=== PATIENT | male | born 1995 | race African-American/Black ===

== ENCOUNTER 2017-11-29 06:26 | Emergency (ER) | payer OTHER ==
[2017-11-29 06:40] VITALS: BP 142/74; PULSE 76; TEMP 98.7; BMI 25.7
--- NOTE | 2017-11-29 07:03 | PDOC ---
History of Present Illness - General Chief Complaint: Wound Stated Complaint: TOE INFECTION Time Seen by Provider: 11/29/17 07:02 History Source: Patient Exam Limitations: No Limitations - History of Present Illness Initial Comments: Pt, with no significant PMH, presents with pain in the 5th toe of the R foot for 4-5 days. He states there was no trauma or injury to the foot, but noticed pain and a blister with bloody drainage at the lateral aspect of the toe. He is presenting today because he noticed the toenail has started to "lift off" and saw clear and bloody discharge on his sock today before presentation. 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 He says the pain is sharp, only occurs when he attempts to bear weight, and does not extend towards the midfoot. He is able to ambulate and bear weight on the foot. He denies fevers/chills, nausea/vomiting, urinary symptoms, diarrhea, or other joint swelling. 11/29/17 08:56 Past History - Travel Traveled outside of the country in the last 30 days: No Close contact w/someone who was outside of country & ill: No - Past Medical History Allergies/Adverse Reactions: Allergies Allergy/AdvReac Type Severity Reaction Status Date / Time No Known Allergies Allergy Verified 11/29/17 06:39 Home Medications: Ambulatory Orders Cephalexin [Keflex] 500 mg PO BID 5 Days #10 capsule 11/29/17 COPD: No Diabetes: No HTN: No - Surgical History Orthopedic Surgery: No - Immunization History Immunization Up to Date: Yes - Suicide/Smoking/Psychosocial Hx Smoking History: Never smoked Have you smoked in the past 12 months: No Information on smoking cessation initiated: No Hx Alcohol Use: No Drug/Substance Use Hx: No Substance Use Type: None Review of Systems - Review of Systems Able to Perform ROS?: Yes Is the patient limited Bel[place]ian proficient: No Constitutional: Yes: Weight Stable. No: Chills, Diaphoresis, Fever, Loss of Appetite, Weakness HEENTM: No: Recent change in vision, Hearing Loss, Throat Swelling, Difficulty Swallowing Respiratory: No: Cough, Orthopnea, Shortness of Breath Cardiac (ROS): No: Chest Pain, Edema, Irregular Heart Rate, Lightheadedness, Palpitations, Syncope, Chest Tightness ABD/GI: No: Constipated, Diarrhea, Nausea, Poor Appetite, Poor Fluid Intake, Vomiting : No: Burning, Dysuria, Frequency, Urgency Musculoskeletal: Yes: Joint Pain (pain over R 5th toe), Joint Swelling. No: Back Pain, Muscle Pain, Muscle Weakness, Neck Pain Integumentary: Yes: Erythema (erythema and swelling of R 5th toe). No: Bruising , Lesions, Rash Neurological: No: Headache, Numbness, Weakness, Unsteady Gait Psychiatric: No: Sleep Pattern Change, Change in Appetite Endocrine: No: Increased Urine, Change in Weight Hematologic/Lymphatic: No: Anemia, Blood Clots, Easy Bleeding All Other Systems: Reviewed and Negative *Physical Exam - Vital Signs Last Vital Signs Temp Pulse Resp BP Pulse Ox 98.7 F 76 18 142/74 97 11/29/17 06:39 11/29/17 06:39 11/29/17 06:39 11/29/17 06:39 11/29/17 06:39 - Physical Exam General Appearance: Yes: Nourished, Appropriately Dressed. No: Apparent Distress HEENT: positive: EOMI, Normal ENT Inspection, Normal Voice, Symmetrical, Pharynx Normal, Hearing Grossly Normal. negative: Scleral Icterus (R), Scleral Icterus (L), Tonsillar Exudate, Tonsillar Erythema Neck: positive: Trachea midline, Normal Thyroid, Supple. negative: Tender, Rigid, Lymphadenopathy (R), Lymphadenopathy (L) Respiratory/Chest: positive: Lungs Clear, Normal Breath Sounds. negative: Chest Tender, Respiratory Distress, Accessory Muscle Use Cardiovascular: positive: Regular Rhythm, Regular Rate, S1, S2. negative: Edema , JVD, Murmur Vascular Pulses: Dorsalis-Pedis (R): 4+, Doralis-Pedis (L): 4+ Gastrointestinal/Abdominal: positive: Normal Bowel Sounds, Flat, Soft. negative : Tender, Organomegaly, Pulsatile Mass Rectal Exam: positive: deferred Lymphatic: negative: Adenopathy, Tenderness Musculoskeletal: positive: Normal Inspection. negative: CVA Tenderness, Decreased Range of Motion Extremity: positive: Normal Capillary Refill, Normal Range of Motion, Tender ( tenderness at lateral aspect of R 5th toe. Small area of serosanguinous drainage and fluctuant area just inferior to nailbed. Tinea pedis b/l. ). negative: Normal Inspection, Coldness, Cyanosis, Pedal Edema, Calf Tenderness Integumentary: positive: Normal Color, Dry, Warm, Erythema (area of fluctuance and drainage over R 5th toe. ). 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 negative: Numbness, Sensory Deficit Procedures - Incision and Drainage I&D Site: Right: Other (R 5th toe just inferior to nailbed. ) Betadine cleansed: Yes Anesthesia: 1% Lidocaine Volume(ml): 3 (for digital block) Blade Size: 11 Attempts: 1 Plain Packing: No Complications: none Dressing: Yes (sterile dressing and band-aid placed) Progress: Digital block to R 5th digit. placed with 1% lidocaine from laceration tray package. Small incision (.5 cm) placed with 11 blade within inferior nail bed. Small amount of sero-sanguineous drainage extracted from fluctuant area. Bleeding controlled with pressure. Sterile dressing and band-aid applied. 11/30/17 19:46 - Bedside Ultrasound Bedside Ultrasound: Skin Other: No fluctuant area or large abscess identified. Medical Decision Making - Medical Decision Making Pt seen at bedside. Also seen by Dr. Robbins. Pt has small area of fluctuance inferior to nailbed of R 5th toe. Draining small amount of sero-sanguineous fluid. 11/29/17 07:26 (entered later) Digital block and I&D completed at base of nailbed to R 5th toe (see procedure note). Bleeding and pain controlled. Antibiotics sent to pharmacy. Pt will follow-up with PCP and strict return precautions given. Pt agreeable to plan. *DC/Admit/Observation/Transfer Diagnosis at time of Disposition: Cellulitis Qualifiers: Site of cellulitis: extremity Site of cellulitis of extremity: toe Laterality: right Qualified Code(s): L03.031 - Cellulitis of right toe - Discharge Dispostion Disposition: HOME Condition at time of disposition: Improved Decision to Admit order: No - Prescriptions Prescriptions: Cephalexin [Keflex] 500 mg PO BID 5 Days #10 capsule - Referrals Referrals: [facility] [place] [facility] [place] [Provider Group] - Patient Instructions Printed Discharge Instructions: DI for Wound Infection Additional Instructions: Please keep the wound on your toe clean, and wash twice per day with warm soap and water. You can place antibiotic ointment on the toe after cleaning. You can also take tylenol or ibuprofen for pain or swelling. We have given you a referral for a primary care doctor for follow-up. Please return to the ER if you have worsening pain or swelling, fevers or chills, swelling or redness spreading up the foot, or any other concerns. - Post Discharge Activity
--- NOTE | 2017-11-29 07:38 | PDOC ---
Attending Attestation - Resident Resident Name: Angelica Patel - ED Attending Attestation I have performed the following: I have examined & evaluated the patient, The case was reviewed & discussed with the resident, I agree w/resident's findings & plan, Exceptions are as noted - HPI HPI: 11/29/17 07:37 22y presents with R 5th digit o nfoot a few days ago. no hx of trauma. started serosangounous drainge this morning that he notice don his sock so he came in. Pt denies any fever/chills, trauma/falls, no pain/redness elswhwere. R Pinky: mild erythema/warmth over dorsum of his pinky toe, +ttp, slight serous discharge at nail fold. ddx includes possible celluitis, pyronichia no significant discharge on I&D will give pt abx return precautions were discussed - Physicial Exam PE: 11/29/17 08:50 see above - Medical Decision Making 12/01/17 16:05 see above
== END 2017-11-29 08:45 | disposition home or self-care (01) ==
LOC: JER 06:26
DX: L03.031 Cellulitis of right toe (principal)
CPT/HCPCS: 99281-25

== ENCOUNTER 2023-05-03 10:43 | Emergency (ER) | payer SELFPAY ==
[2023-05-03 11:00] VITALS: BP 126/77; PULSE 76; RESP 18; TEMP 98.6; BMI 27.1
== END 2023-05-03 12:34 | disposition home or self-care (01) ==
LOC: JERFT 10:43
DX: R21 Rash and other nonspecific skin eruption (principal); L29.9 Pruritus, unspecified; T78.40XA Allergy, unspecified, initial encounter; L50.0 Allergic urticaria
CPT/HCPCS: 99283-25